=== PATIENT | female | born 1995 | race Caucasian/White ===

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

== ENCOUNTER 2017-04-05 03:59 | Emergency (ER) | payer MEDICAID ==
[~2017-04-05] VITALS: Ht 167.6 cm; Wt 54.4 kg
[2017-04-05 04:04] VITALS: BP 117/77
[2017-04-05] MEDS ORDERED: HYDROmorphone 1 MG/ML AMP IM ONE (05:25)
[2017-04-05] MEDS ORDERED: ONDANSETRON 4 MG ODT PO ONE (05:55)
[2017-04-05 06:29] VITALS: BP 120/73
== END 2017-04-05 06:28 | disposition home or self-care (01) ==
LOC: MED 03:59
DX: S00.452A Superficial foreign body of left ear, initial encounter (principal); X58.XXXA Exposure to other specified factors, initial encounter; Y93.89 Activity, other specified; Y92.89 Other specified places as the place of occurrence of the external cause; Y99.8 Other external cause status
CPT/HCPCS: 69200; 96372; 99284; J1170; S0119

== ENCOUNTER 2017-07-01 08:51 | Emergency (ER) | payer MEDICAID ==
[~2017-07-01] VITALS: Ht 162.6 cm; Wt 52.6 kg
[2017-07-01 09:00] VITALS: BP 114/62
--- NOTE | 2017-07-01 09:00 | NUR ---
patient to er bed 3
--- NOTE | 2017-07-01 09:10 | NUR ---
PT PRESENTS TO ER FOR EVALUATION OF RASH TO ENTIRE BODY X2 DAYS. DENIES N/V/D; SKIN IS PINK/WARM/DRY; AAOX4 WITH EVEN AND STEADY GAIT; LUNGS CLEAR BL; HR EVEN AND REGULAR; PT DENIES ANY FEVER, CP, SOB, OR COUGH AT THIS TIME; PATIENT STATES PAIN OF 0/10 AT THIS TIME;PATIENT POSITIONED FOR COMFORT; HOB ELEVATED; BEDRAILS UP X2; BED DOWN. ER MD MADE AWARE OF PT STATUS.
--- NOTE | 2017-07-01 09:11 | NUR ---
DR WILKERSON AT BEDSIDE.
--- NOTE | 2017-07-01 09:19 | NUR ---
Patient discharged with v/s stable. Written and verbal after care instructions given and explained. Patient alert, oriented and verbalized understanding of instructions. Ambulatory with steady gait. All questions addressed prior to discharge. ID band removed. Patient advised to follow up with PMD. Rx of ZYRTEC AND HYDROCORTISONE given. Patient educated on indication of medication including possible reaction and side effects. Opportunity to ask questions provided and answered.
[2017-07-01 09:20] VITALS: BP 110/64
== END 2017-07-01 09:19 | disposition home or self-care (01) ==
LOC: MED 08:51
DX: R21 Rash and other nonspecific skin eruption (principal)
CPT/HCPCS: 99282

== ENCOUNTER 2023-06-23 03:40 | Emergency (ER) | payer MEDICAID, OTHER ==
[~2023-06-23] VITALS: Ht 170.2 cm; Wt 70.3 kg
[2023-06-23 03:46] VITALS: BP 97/67; PULSE 67; RESP 20; TEMP 98; O2SAT 98
[2023-06-23] MEDS ORDERED: ONDANSETRON 4 MG ODT PO ONE (04:15)
[2023-06-23] MEDS ORDERED: MIRABULK PO (04:18)
[2023-06-23] MEDS ORDERED: MAGN296S70 PO (04:18)
[2023-06-23] MEDS ORDERED: IBUP-2213 PO (04:18)
[2023-06-23] MEDS ORDERED: ONDA8TAB87 PO (04:18)
[2023-06-23 04:27] VITALS: BP 97/67; PULSE 67; RESP 20; TEMP 98; O2SAT 98
== END 2023-06-23 04:27 | disposition home or self-care (01) ==
LOC: MED 03:40
DX: K59.00 Constipation, unspecified (principal); R11.0 Nausea
CPT/HCPCS: 99283; Q0162

== ENCOUNTER 2023-12-22 23:00 | Emergency (ER) | payer MEDICAID, OTHER ==
[~2023-12-22] VITALS: Ht 167.6 cm; Wt 68.0 kg
[~2023-12-22 23:00] MED LIST: IBUP-2213 PO; MAGN296S70 PO; MIRABULK PO; ONDA8TAB87 PO
[2023-12-22 23:04] VITALS: BP 120/59; TEMP 97.4
[2023-12-23] MEDS ORDERED: KETOROLAC 60 MG/2 ML VIAL IM ONE (00:54)
[2023-12-23] MEDS: KETOROLAC 30 MG/ML VIAL IM ONE (01:03)
[2023-12-23] MEDS: PROCHLORPERAZINE 10 MG/2 ML VIAL IM ONE (01:03)
[2023-12-23] MEDS ORDERED: IBUP-2213 PO (02:51)
[2023-12-23 02:54] VITALS: BP 122/62; PULSE 72; RESP 18; TEMP 97.4; O2SAT 98
== END 2023-12-23 02:54 | disposition home or self-care (01) ==
LOC: MED 23:00
DX: G43.909 Migraine, unspecified, not intractable, without status migrainosus (principal); Z79.899 Other long term (current) drug therapy
CPT/HCPCS: 81002; 81025; 96372; 99284; J0780; J1885; Q0163